=== PATIENT | female | born 1955 ===

== ENCOUNTER 2020-10-13 12:00 | Observation (INO) ==
[2020-10-13] MEDS ORDERED: Heparin DRIP 25,000 UNITS BAG 25,000 UNITS/500 ML BAG IV SCH ×2 (12:15→12:30)
[2020-10-13 12:43] LABS: ABS Basophils 0.1 10^3/ul (0-0.2); ABS Eosinophils 0.1 10^3/ul (0-0.6); ABS Lymphocytes 1.2 10^3/ul (1.0-4.8); ABS Neutrophils 8.7 10^3/ul (1.5-7.7); Eosinophil % 0.7 %; Hematocrit 47 % (35-47); Hemoglobin 15.5 g/dL (12.0-16.0); Lymphocyte % 10.7 %; Mean Corpuscular HGB Conc 33 g/dL (31-36); Mean Corpuscular Hemoglobin 27 pg (27-31); Mean Corpuscular Volume 83 fL (80-97); Platelet Count 136 10^3/uL (150-450); Red Cell Distribution Width 13 % (10-15)
[2020-10-13] MEDS ORDERED: Heparin 5000 UNITS/ML 1 mL VIAL IV SCH (13:00)
[2020-10-13 13:01] LABS: ALT 20 U/L (7-52); Albumin 4.1 g/dL (3.2-5.2); Albumin/Globulin Ratio 1.5 (1-3); Alkaline Phosphatase 69 U/L (34-104); BUN/Creatinine Ratio 12.5 (8-20); Blood Urea Nitrogen 10 mg/dL (6-24); CO2 Carbon Dioxide 25 mmol/L (22-32); Calcium 9.2 mg/dL (8.6-10.3); Chloride 105 mmol/L (101-111); EGFR African American 86.6 (>60); EGFR Non-African American 71.5 (>60); Globulin 2.8 g/dL (2-4); Glucose 99 mg/dL (70-100); Sodium 138 mmol/L (135-145); Total Protein 6.9 g/dL (6.4-8.9)
[2020-10-13 13:05] LABS: Anion Gap 8 mmol/L (2-11); Troponin I 0.28 ng/mL (<0.03)
[2020-10-13] MEDS ORDERED: Ondansetron 4 mg VIAL 2 MG/ML 2 ml VIAL IV PRN (14:43)
[2020-10-13 17:00] LABS: Troponin I 0.19 ng/mL (<0.03)
[2020-10-13 18:23] LABS: Activated Partial Thrombo Time 78.5 seconds (26.0-38.0)
[2020-10-13 18:36] LABS: Troponin I 0.19 ng/mL (<0.03)
[2020-10-13 19:44] LABS: INR 1.49 (0.82-1.09)
[2020-10-13] MEDS ORDERED: Warfarin per PHARMACY **NOTE FOLLOW UP SCH (20:00)
[2020-10-14 06:34] LABS: ABS Basophils 0.1 10^3/ul (0-0.2); ABS Eosinophils 0.2 10^3/ul (0-0.6); ABS Lymphocytes 1.5 10^3/ul (1.0-4.8); ABS Monocytes 0.8 10^3/ul (0-0.8); ABS Neutrophils 5.1 10^3/ul (1.5-7.7); Eosinophil % 2.5 %; Hematocrit 43 % (35-47); Hemoglobin 14.4 g/dL (12.0-16.0); Lymphocyte % 20.2 %; Mean Corpuscular HGB Conc 34 g/dL (31-36); Mean Corpuscular Hemoglobin 28 pg (27-31); Mean Corpuscular Volume 82 fL (80-97); Nucleated Red Blood Cells % 0.1; Platelet Count 124 10^3/uL (150-450); Red Blood Count 5.19 10^6 /uL (3.70-4.87); Red Cell Distribution Width 14 % (10-15); White Blood Count 7.6 10^3/uL (3.5-10.8)
[2020-10-14 06:39] LABS: INR 1.33 (0.82-1.09)
[2020-10-14 06:48] LABS: BUN/Creatinine Ratio 12.8 (8-20); EGFR African American 89.1 (>60); EGFR Non-African American 73.7 (>60); Potassium 3.7 mmol/L (3.5-5.0)
[2020-10-14] MEDS ORDERED: Enoxaparin 80 MG/0.8 ML SYR SUBCUT SCH (11:00)
[2020-10-14] MEDS ORDERED: Perflutren Lipid Microsphere 3 ML VIAL ONE (12:16)
[2020-10-14 15:47] VITALS: BP 133/69
[2020-10-15] MEDS ORDERED: Aspirin EC 81 mg TAB.EC (enteric coated) PO SCH (09:00)
== END 2020-10-14 18:15 | disposition home or self-care (01) ==
LOC: ED 12:00 → MEDTELE 14:25 → INTOOBSV 14:25 → MEDTELE 16:26
PROVIDERS: ADMIT Internal Medicine; ATTEND Internal Medicine